=== PATIENT | male | born 1990 ===

== ENCOUNTER → 2019-09-19 | Outpatient (CLI) | payer OTHER | END | disposition home or self-care (01) | LOC: LAB SHORT 16:45 → LAB EV 16:45 | DX: L02.91 Cutaneous abscess, unspecified (principal) | CPT/HCPCS: 87070; 87077; 87147; 87186; 87205 ==

== ENCOUNTER → 2024-04-27 | Outpatient (CLI) | payer OTHER | LOC: LAB SHORT 09:51 | DX: R53.83 Other fatigue (principal) | CPT/HCPCS: 84403 ==

== ENCOUNTER → 2024-05-04 | Outpatient (CLI) | payer OTHER ==
[2024-05-04 08:19] LABS: Albumin, Blood 4.1 g/dL (3.4-5.0); Albumin/Globulin Ratio 1.4 (0.8-1.8); Bilirubin, Total 0.7 mg/dL (0.1-1.0); Bun/Creatinine Ratio 21.5 (12.0-20.0); Calcium, Blood 9.1 mg/dL (8.5-10.1); Creatinine, Blood 1.3 mg/dL (0.60-1.20); Potassium, Blood 4.3 mmol/L (3.5-5.5); Total Protein, Blood 7.1 g/dL (6.4-8.2)
[2024-05-04 09:05] LABS: Follicle Stimulating Hormone 5.6 mIU/ml (0.7-10.8); Luteinizing Hormone 3.8 mIU/ml (1.2-10.6)
[2024-05-05 18:02] LABS: SEX HORMONE BINDING GLOBULIN 30 nmol/L (17-56)
== END ==
LOC: LAB 07:45 → LAB SHORT 07:45
PROVIDERS: Physician Assistant
DX: E29.1 Testicular hypofunction (principal)
CPT/HCPCS: 80053; 83001; 83002; 84146; 84270; 84403